=== PATIENT | female | born 2000 | race Caucasian/White ===

== ENCOUNTER 2025-08-05 11:57 | Emergency (ER) | payer OTHER ==
[~2025-08-05] VITALS: Ht 167.6 cm; Wt 81.6 kg
[2025-08-05 12:03] VITALS: BP 135/97; TEMP 98
[2025-08-05 12:40] VITALS: O2SAT 98
== END 2025-08-05 12:47 | disposition home or self-care (01) ==
LOC: ER 12:06
DX: S09.91XA Unspecified injury of ear, initial encounter (principal); X58.XXXA Exposure to other specified factors, initial encounter; Y93.89 Activity, other specified; Y92.89 Other specified places as the place of occurrence of the external cause; Y99.8 Other external cause status